=== PATIENT | female | born 1950 | race Caucasian/White ===

== ENCOUNTER 2017-05-06 21:23 | Emergency (ER) | payer OTHER ==
[~2017-05-06 21:23] MED LIST: AMLODIPINE BESYL5 M1 PO; ANTIVERT12.5 MG PO; ASPIRIN ADULT L81 M4 PO; ATORVASTATIN CA40 M1 PO; COZAAR50 MG PO; LIPI10 PO; METOPROLOL SUCC25 M1 PO; OMEPRAZOLE DR20 M1 PO; OXYBUTYNIN CHLOR5 MG PO; OYSTER SHELL C500 M3 PO
[2017-05-06 22:14] LABS: microscopic required? YES; urine erythrocyte TRACE (NEGATIVE)
[2017-05-06 22:16] LABS: BASOPHIL % 0.3 % (0-2); PLATELET COUNT 173 x10^3mcL (130-400); RED CELL DISTRIBUTION WIDTH 13.6 % (11.5-14.5)
[2017-05-06 22:24] LABS: CALCIUM 8.8 mg/dL (8.5-10.1); CREATININE SERUM 1.1 mg/dL (0.6-1.0); POTASSIUM SERUM 3.6 mmol/L (3.5-5.1)
[2017-05-06 22:28] LABS: ALBUMIN 3.2 g/dL (3.4-5.0); BILIRUBIN TOTAL 0.19 mg/dL (0.20-1.00); TOTAL PROTEIN, SERUM 7.5 g/dL (6.4-8.2)
[2017-05-07 00:31] VITALS: BP 130/81
== END 2017-05-07 00:31 | disposition home or self-care (01) ==
LOC: ED 21:23
PROVIDERS: Emergency Medicine
DX: N39.0 Urinary tract infection, site not specified (principal)
CPT/HCPCS: J0696; J1170; J1885; J2405; J7030

== ENCOUNTER 2018-01-30 09:24 | Emergency (ER) | payer OTHER ==
[~2018-01-30] VITALS: Ht 162.6 cm; Wt 81.3 kg
[2018-01-30 09:40] VITALS: Ht 162.6 cm; Wt 81.3 kg
[2018-01-30 11:13] LABS: BASOPHIL % 0.3 % (0-2); PLATELET COUNT 149 x10^3mcL (130-400); RED CELL DISTRIBUTION WIDTH 13.9 % (11.5-14.5)
[2018-01-30 11:17] LABS: CALCIUM 9.3 mg/dL (8.5-10.1); CREATININE SERUM 1.1 mg/dL (0.6-1.0); POTASSIUM SERUM 4.5 mmol/L (3.5-5.1)
[2018-01-30 11:22] LABS: BILIRUBIN TOTAL 0.45 mg/dL (0.20-1.00); TOTAL PROTEIN, SERUM 7.7 g/dL (6.4-8.2)
[2018-01-30 11:24] LABS: ALBUMIN 3.3 g/dL (3.4-5.0)
[2018-01-30 12:08] VITALS: BP 136/81
== END 2018-01-30 12:08 | disposition home or self-care (01) ==
LOC: ED 09:24
PROVIDERS: Emergency Medicine
DX: J40 Bronchitis, not specified as acute or chronic (principal); L50.9 Urticaria, unspecified; M79.1 Myalgia; R21 Rash and other nonspecific skin eruption; R11.2 Nausea with vomiting, unspecified; J45.909 Unspecified asthma, uncomplicated; I10 Essential (primary) hypertension; E11.9 Type 2 diabetes mellitus without complications; Z90.49 Acquired absence of other specified parts of digestive tract
CPT/HCPCS: J2550; Q0092

== ENCOUNTER 2018-04-30 04:45 | Emergency (ER) | payer OTHER ==
[~2018-04-30] VITALS: Ht 162.6 cm; Wt 82.1 kg
[2018-04-30 04:56] VITALS: BP 145/82; Ht 162.6 cm; Wt 82.1 kg
== END 2018-04-30 05:44 | disposition home or self-care (01) ==
LOC: ED 04:45
DX: R04.0 Epistaxis (principal); J45.909 Unspecified asthma, uncomplicated; I10 Essential (primary) hypertension; E11.9 Type 2 diabetes mellitus without complications; F41.9 Anxiety disorder, unspecified; Z90.49 Acquired absence of other specified parts of digestive tract; Z86.73 Personal history of transient ischemic attack (TIA), and cerebral infarction without residual deficits

== ENCOUNTER 2018-04-30 15:58 | Emergency (ER) | payer OTHER ==
[~2018-04-30] VITALS: Ht 162.6 cm; Wt 83.0 kg
[2018-04-30 18:45] LABS: BASOPHIL % 0.4 % (0-2); PLATELET COUNT 153 x10^3mcL (130-400)
[2018-04-30 18:46] LABS: RED CELL DISTRIBUTION WIDTH 14.8 % (11.5-14.5)
[2018-04-30 19:07] LABS: CALCIUM 9.4 mg/dL (8.5-10.1); CARBON DIOXIDE 28.8 mmol/L (21-32); CREATININE SERUM 1.1 mg/dL (0.6-1.0); POTASSIUM SERUM 4.6 mmol/L (3.5-5.1)
[2018-04-30 19:51] VITALS: BP 153/77
== END 2018-04-30 19:51 | disposition home or self-care (01) ==
LOC: ED 15:58
PROVIDERS: Emergency Medicine
DX: R04.0 Epistaxis (principal); J45.909 Unspecified asthma, uncomplicated; I10 Essential (primary) hypertension; F41.9 Anxiety disorder, unspecified; E11.9 Type 2 diabetes mellitus without complications; Z86.73 Personal history of transient ischemic attack (TIA), and cerebral infarction without residual deficits; Z90.49 Acquired absence of other specified parts of digestive tract
CPT/HCPCS: 36415

== ENCOUNTER 2019-08-09 10:19 | Inpatient (IN) | payer OTHER ==
[~2019-08-09] VITALS: Ht 167.6 cm; Wt 81.4 kg
[2019-08-09 11:37] LABS: BASOPHIL % 0.9 % (0-2); PLATELET COUNT 172 x10^3mcL (130-400); RED CELL DISTRIBUTION WIDTH 13.8 % (11.5-14.5)
[2019-08-09 11:54] LABS: CALCIUM 9.3 mg/dL (8.5-10.1); CREATININE SERUM 1.2 mg/dL (0.6-1.0); POTASSIUM SERUM 3.3 mmol/L (3.5-5.1)
[2019-08-09 11:59] LABS: ALBUMIN 3.7 g/dL (3.4-5.0); BILIRUBIN TOTAL 0.7 mg/dL (0.20-1.00); TOTAL PROTEIN, SERUM 7.9 g/dL (6.4-8.2)
[2019-08-09] MEDS ORDERED: MICROZIDE12.5 MG PO (12:45)
[2019-08-09] MEDS ORDERED: ATORVASTATIN CA20 M1 PO (12:46)
[2019-08-09] MEDS ORDERED: AMLODIPINE BESY10 M2 PO (12:46)
[2019-08-09] MEDS ORDERED: ESCITALOPRAM OXA5 MG PO (12:47)
[2019-08-09 14:05] LABS: MAGNESIUM 1.9 mg/dL (1.8-2.4); PHOSPHOROUS 3.9 mg/dL (2.5-4.9)
[2019-08-09 14:24] LABS: UA SPECIFIC GRAVITY 1.025 (1.005-1.035); microscopic required? YES; urine erythrocyte 1+ (NEGATIVE)
[2019-08-09 14:37] LABS: FREE T4 1.34 ng/dL (0.76-1.46); FREE THYROXINE INDEX 3.4 ug/dL (1.4-4.5); T4(THYROXINE) 10.2 ug/dL (4.7-13.3)
[2019-08-09 16:13] LABS: T3 TOTAL 1.16 ng/mL
[2019-08-09 18:06] VITALS: BP 126/57
[2019-08-09 18:12] VITALS: Ht 167.6 cm; Wt 81.4 kg
[2019-08-09 21:27] VITALS: BP 149/47
[2019-08-10 06:13] VITALS: BP 148/88
[2019-08-10 08:44] VITALS: BP 149/71
[2019-08-10 12:53] VITALS: BP 107/54
[2019-08-10 18:16] VITALS: BP 143/80
[2019-08-10 20:18] VITALS: BP 132/63
[2019-08-11 06:02] VITALS: BP 113/47
[2019-08-11 06:10] LABS: BASOPHIL % 0.2 % (0-2); PLATELET COUNT 132 x10^3mcL (130-400); RED CELL DISTRIBUTION WIDTH 13.8 % (11.5-14.5)
[2019-08-11 06:46] LABS: CALCIUM 8.7 mg/dL (8.5-10.1); CARBON DIOXIDE 30.6 mmol/L (21-32); MAGNESIUM 1.9 mg/dL (1.8-2.4); PHOSPHOROUS 3.7 mg/dL (2.5-4.9); POTASSIUM SERUM 4.2 mmol/L (3.5-5.1)
[2019-08-11 08:51] VITALS: BP 110/48
[2019-08-11 10:32] VITALS: BP 110/48
[2019-08-11 12:37] VITALS: BP 149/86
[2019-08-11 16:50] VITALS: BP 144/74
[2019-08-11 20:22] VITALS: BP 118/56
[2019-08-12 05:44] VITALS: BP 117/72
[2019-08-12 06:31] LABS: CALCIUM 8.8 mg/dL (8.5-10.1); CARBON DIOXIDE 29.9 mmol/L (21-32); CHLORIDE SERUM 105 mmol/L (98-107); CREATININE SERUM 0.9 mg/dL (0.6-1.0); GFR1 > 60 mL/min; GLUCOSE SERUM 91 mg/dL (74-106); PHOSPHOROUS 3.4 mg/dL (2.5-4.9); POTASSIUM SERUM 3.9 mmol/L (3.5-5.1); SODIUM SERUM 144 mmol/L (136-145)
[2019-08-12 07:04] LABS: BASOPHIL % 0.2 % (0-2); PLATELET COUNT 138 x10^3mcL (130-400)
[2019-08-12 09:32] VITALS: BP 133/69
[2019-08-12 13:40] VITALS: BP 126/58
[2019-08-12 17:36] VITALS: BP 142/60
[2019-08-12 20:28] VITALS: BP 133/62
[2019-08-13 05:56] VITALS: BP 128/68
[2019-08-13 06:11] LABS: BASOPHIL % 0.2 % (0-2); PLATELET COUNT 138 x10^3mcL (130-400); RED CELL DISTRIBUTION WIDTH 13.7 % (11.5-14.5)
[2019-08-13 06:52] LABS: CALCIUM 8.8 mg/dL (8.5-10.1); CARBON DIOXIDE 28.6 mmol/L (21-32); MAGNESIUM 1.9 mg/dL (1.8-2.4); PHOSPHOROUS 3.6 mg/dL (2.5-4.9); POTASSIUM SERUM 3.8 mmol/L (3.5-5.1)
[2019-08-13 09:10] VITALS: BP 136/73
[2019-08-13 12:54] VITALS: BP 119/62
[2019-08-13] MEDS ORDERED: IBU800 M2 PO (17:21)
[2019-08-13 17:24] VITALS: BP 119/62
== END 2019-08-13 17:50 | disposition home or self-care (01) | DRG 280 ==
LOC: ED 10:19 → DU 12:52 → MU 08-13 16:52
PROVIDERS: Emergency Medicine; Internal Medicine Geriatric Medicine; ADMIT Internal Medicine
PROC: B211YZZ Fluoroscopy of Multiple Coronary Arteries using Other Contrast (ICD-10-PCS; 2019-08-12)
PROC: B215YZZ Fluoroscopy of Left Heart using Other Contrast (ICD-10-PCS; 2019-08-12)
PROC: 4A023N7 Measurement of Cardiac Sampling and Pressure, Left Heart, Percutaneous Approach (ICD-10-PCS; principal; 2019-08-12 15:00)
DX: I21.4 Non-ST elevation (NSTEMI) myocardial infarction (principal); N17.0 Acute kidney failure with tubular necrosis; I25.119 Atherosclerotic heart disease of native coronary artery with unspecified angina pectoris; I11.9 Hypertensive heart disease without heart failure; E86.0 Dehydration; E87.6 Hypokalemia; B34.9 Viral infection, unspecified; R32 Unspecified urinary incontinence; F32.9 Major depressive disorder, single episode, unspecified; K21.9 Gastro-esophageal reflux disease without esophagitis; M19.90 Unspecified osteoarthritis, unspecified site; E78.5 Hyperlipidemia, unspecified; F17.210 Nicotine dependence, cigarettes, uncomplicated; I25.2 Old myocardial infarction; Z79.82 Long term (current) use of aspirin; Z86.73 Personal history of transient ischemic attack (TIA), and cerebral infarction without residual deficits; Z68.35 Body mass index [BMI] 35.0-35.9, adult
CPT/HCPCS: CLHCL; 83880; 84439; 87804; 94150; 99406; C1760; C1769; C1894; G0378; J1644; J1885; J2001; J2250; J2270; J3010; J7030; J7040; J7620; Q9967